=== PATIENT | male | born 1970 | race Caucasian/White ===

== ENCOUNTER 2018-03-01 22:58 | Emergency (ER) | payer OTHER ==
[~2018-03-01] VITALS: Ht 182.9 cm; Wt 103.1 kg
[2018-03-01] MEDS ORDERED: SODIUM CHLORIDE 0.9% 1,000 ML IV ONE (23:10)
[2018-03-01] MEDS ORDERED: MORPHINE SULFATE 4 MG/ML, 1ML IVPush PRN (23:30)
[2018-03-01] MEDS ORDERED: SODIUM CHLORIDE FLUSH 10ML SYR IVF ONE (23:30)
[2018-03-01] MEDS ORDERED: PROPOFOL 10 MG/ML, 20ML IVPush ONE (23:30)
[2018-03-01] MEDS ORDERED: PROPOFOL 10 MG/ML, 20ML ONE (23:45)
[2018-03-02] MEDS ORDERED: PROPOFOL 10 MG/ML, 20ML IVPush ONE (01:30)
[2018-03-02 01:33] VITALS: BP 123/78
== END 2018-03-02 01:42 | disposition home or self-care (01) ==
LOC: ED 23:59
DX: T18.128A Food in esophagus causing other injury, initial encounter (principal); X58.XXXA Exposure to other specified factors, initial encounter; Y93.89 Activity, other specified; Y92.89 Other specified places as the place of occurrence of the external cause; Y99.9 Unspecified external cause status
CPT/HCPCS: 43247; 99285; J2704; J7030